=== PATIENT | male | born 1950 | race Caucasian/White ===

== ENCOUNTER 2024-12-11 07:51 | Outpatient (OUT) | payer MEDICARE, MEDICAID, SELFPAY ==
--- NOTE | 2024-12-11 08:00 | CA_ITS ---
Patient Name: ISAIAH COOPER MR#: [id number] : 1950 Exam Date: 12/11/2024 Ordering Doctor: ZUHAIR HALL CNP ECHOCARDIOGRAM REPORT PROCEDURE: CA ECHO DOPPLER COMPLETE INDICATIONS: Dyspnea on exertion, COPD, hypertension COMPARISON: None. DESCRIPTION: COMPLETE ECHOCARDIOGRAM Real-time transthoracic echocardiography with 2D, M-mode, spectral and color flow Doppler performed. QUALITY: Technical quality was adequate. LEFT VENTRICLE: Normal chamber size. Normal left ventricular wall thickness. LV EF: Global left ventricular systolic function is difficult to assess but appears preserved; visually estimated ejection fraction is 55%. Unable to assess regional wall motion abnormality; consider contrast study for better delineation of endocardial borders. DIASTOLIC: Unable to assess diastolic function. ATRIAL SEPTUM: Visually appears intact. LEFT ATRIUM: Normal chamber size. RIGHT ATRIUM: Normal chamber size. RIGHT VENTRICLE: Normal chamber size. Normal right ventricular systolic function. TRICUSPID VALVE: Normal mobility and thickness. No stenosis with no regurgitation. Unable to assess right-sided pressures due to lack of measurable tricuspid regurgitation. MITRAL VALVE: Normal mobility and thickness. No evidence of mitral valve stenosis. There is no mitral annular calcification. Trivial mitral regurgitation. AORTIC VALVE: Normal trileaflet appearance. No visible sclerosis. Normal leaflet mobility. No evidence of aortic valve stenosis. No aortic regurgitation. AORTIC ROOT: Normal diameter and appearance. PULMONIC VALVE: Not well visualized. No stenosis. No regurgitation. PERICARDIUM: Anterior free space; trivial effusion versus fat pad. IVC: Collapses with inspirations. IVC is normal in size. CONCLUSION: 1. Global left ventricular systolic function is difficult to assess but appears preserved; visually estimated ejection fraction is 55% 2. Normal right ventricular size and systolic function 3. The left atrium is normal in size 4. No significant valvular abnormalities 5. Anterior free space; trivial effusion versus fat pad Adult Echocardiography Procedure Report Left Ventricle LVEDD (3.7 - 5.6 cm): 5.12 cm LVESD (2.2 - 4.0 cm): 3.99 cm LVIVS thickness (0.6 - 1.2 cm): 0.89 cm LVPW thickness (0.5 - 1.0 cm): 0.90 cm e': 0.09 m/s E - e': 4.96 LVOT Max Gradient: 2.03 mm[Hg] LVOT Area (cm2): 0.71 m/s Peak Velocity (LVOT): 0.71 m/s Mean Velocity (LVOT): 0.47 m/s LVOT Diameter 2.41 cm Left Atrium LA Volume Index (2D A2C): 33.01 ml/m2 Left Atrium Systolic Dimension: 4.52 cm Mitral Valve MV E to A Ratio: 1.09 Mitral Valve A-Wave Peak Velocity: 0.42 m/s Mitral Valve E-Wave Peak Velocity: 0.46 m/s Right Ventricle Aorta AO Root Diam: 3.44 cm Aortic Valve AoV Area (Peak Mina): 2.58 cm2, 2.58 cm2 AoV Area (VTI): 2.67 cm2, 2.67 cm2 Peak Velocity(Antegrade Flow): 1.26 m/s Peak Gradient(Antegrade Flow): 6.34 mm[Hg] Mean Velocity(Antegrade Flow): 0.88 m/s Mean Gradient(Antegrade Flow): 3.50 mm[Hg] Velocity Time Integral: 21.07 cm Tricuspid Valve Pulmonic Valve Mean Gradient: 1.48 mm[Hg] Mean Velocity: 0.57 m/s Peak Velocity: 0.83 m/s, 1.00 m/s Peak Gradient: 3.98 mm[Hg], 2.72 mm[Hg] Right Atrium Right Atrium Systolic Pressure: 48.42 ml, 48.42 ml Dictated by: Jayshree Kidd M.D. on 12/11/2024 at 15:52 Approved by: Jayshree Kidd M.D. on 12/11/2024 at 15:55
== END 2024-12-11 07:52 | disposition home or self-care (01) ==
LOC: CARD 07:58
PROVIDERS: PCP Nurse Practitioner Family; Visit Provider Nurse Practitioner Family
DX: I25.10 Atherosclerotic heart disease of native coronary artery without angina pectoris (principal); R06.09 Other forms of dyspnea
CPT/HCPCS: 93306

== ENCOUNTER 2025-05-21 14:15 | Outpatient (REF) | payer MEDICARE, MEDICAID, SELFPAY ==
--- OUTSIDE RECORDS SUMMARY | 2025-05-21 14:26 | XMS_ITS | CCD ---
Author Organization [facility] Care Team Providers Care Practice Clinician Name Role Phone Alex Dsouza Unavailable Unavailable Alex Dsouza Unavailable Unavailable Alex Dsouza Unavailable Unavailable NONE, XXXX Unavailable Unavailable MORGAN PEREZ Referring Unavailable MORGAN PEREZ Primary Care Unavailable Morgan Perez Primary Care Provider MISC, DR DWYER Attending Unavailable MISC, DR DWYER Consulting Unavailable MISC, DR DWYER Primary Care Unavailable MISC, DR DWYER Admitting Unavailable ZUHAIR HALL Consulting Unavailable MISC, DR DWYER Primary Care Unavailable ZUHAIR HALL Admitting Unavailable ZUHAIR HALL Attending Unavailable WEST, DR JUAN Page Consulting Unavailable MISC, DR DWYER Primary Care Unavailable ELTAHAWY, DR JIMÉNEZ Attending Unavailable ELTAHAWY, DR JIMÉNEZ Admitting Unavailable ELTAHAWY, DR JIMÉNEZ Consulting Unavailable ELTAHAWY, DR JIMÉNEZ Admitting Unavailable MISC, DR DWYER Primary Care Unavailable ELTAHAWY, DR JIMÉNEZ Attending Unavailable DSOUZA, DR YOUNG Attending Unavailable DSOUZA, DR YOUNG Admitting Unavailable DSOUZA, DR YOUNG Consulting Unavailable MISC, DR DWYER Primary Care Unavailable MISC, DR DWYER Referring Unavailable WEST, DR JUAN Page Consulting Unavailable ZUHAIR HALL Consulting Unavailable ZUHAIR HALL Admitting Unavailable MISC, DR DWYER Primary Care Unavailable ZUHAIR HALL Attending Unavailable Joseph Peterson MD Primary Care Provider No Pcp, No Pcp Primary Care Provider UnavailJoseph Centeno MD Unavailable ZUHAIR HALL Attending Unavailable ZUHAIR HALL Attending Unavailable No Pcp, No Pcp Primary Care Provider UnavailRENEE Carrillo Attending Unavailable JOSEPH PETERSON Primary Care Unavailable RENEE CANO Attending Unavailable NO PCP, NO PCP Primary Care Unavailable Joseph Peterson MD Primary Care Provider [phone] RENEE CANO Attending Unavailable RENEE CANO Referring Unavailable JOSEPH PETERSON Primary Care Unavailable BIANCA CM Referring Unavailable JOSEPH PETERSON Primary Care Unavailable Medications Current Medications Medication Drug Class(es) Dates Sig (Normalized) Sig (Original) acetaminophen 325 mg oral tablet (3 sources) take 2 tablets by mouth every six hours as needed for pain and fever acetaminophen (TYLENOL) 325 mg tablet Take 2 tablets (650 mg total) by mouth every 6 (six) hours as needed for pain or fever (FEVER >101F). Active [id number] 200 actuat albuterol 0.09 mg/actuat metered dose inhaler (2 sources) beta2-Adrenergic Agonist take 2 puff(s) by inhalation every six hours as needed for wheezing albuterol (PROVENTIL HFA;VENTOLIN HFA) 90 mcg/actuation inhaler Inhale 2 puffs every 6 (six) hours as needed for wheezing. Active apixaban 5 mg oral tablet (5 sources) Factor Xa Inhibitor apixaban (EL IQUIS) 5 mg tablet Take by mouth in the morning and before bedtime. Active aspirin 81 mg delayed release oral tablet (5 sources) Platelet Aggregation Inhibitor, Nonsteroidal Anti-inflammatory Drug take 1 tablet by mouth in the morning aspirin 81 mg Take 1 tablet (81 mg total) by mouth in the morning. Active aspirin 81 mg ch ewable tablet Chew 1 tablet (81 mg total) and swallow in the morning. Active atorvastatin 40 mg oral tablet (3 sources) HMG-CoA Reductase Inhibitor take 1 tablet by mouth in the morning atorvastatin (LIPITOR) 40 mg tablet Take 1 tablet (40 mg total) by mouth in the morning. Active busPIRone hydrochloride 7.5 mg oral tablet (2 sources) Start: take 1 tablet by mouth once daily at bedtime busPIRone (BUSPAR) 7.5 mg tablet Take 1 tablet (7.5 mg total) by mouth once daily at bedtime. 12/04/2024 Active calcium carbonate 1250 mg / cholecalciferol 200 unt oral tablet (3 sources) Vitamin D take 1 tablet by mouth once in the morning calcium carbonate-vitamin D3 (OSCAL 500 + D) 500 mg(1,250mg) -200 units per tablet Take 1 tablet by mouth in the morning. Active cholecalciferol 0.05 mg oral capsule (3 sources) Vitamin D take 1 capsule by mouth in the morning cholecalciferol, vitamin D3, 2,000 units capsule Take 1 capsule (2,000 Units total) by mouth in the morning. Active sugar-free cholestyramine resin 4000 mg powder for oral suspension (2 sources) Bile Acid Sequestrant take 1 dose by mouth in the morning cholestyramine-aspa rtame (PREVALITE) 4 g powder in packet Take 1 packet by mouth in the morning. Active cholestyramine-aspartam e (PREVALITE) 4 g powder in packet (1 source) take 1 dose by mouth in the morning cholestyramine-aspa rtame (PREVALITE) 4 g powder in packet Take 1 packet by mouth in the morning. Active dexamethasone 2 mg oral tablet (2 sources) Corticosteroid take 1 tablet by mouth once daily at breakfast dexAMETHasone (DECADRON) 2 mg tablet Take 1 tablet (2 mg total) by mouth daily with breakfast. Active dextromethorphan hydrobromide 20 mg / quiNIDine sulfate 10 mg oral capsule (3 sources) Antiarrhythmic, Uncompetitive Q-nitxvf-V-aspartate Receptor Antagonist, Cytochrome P450 2D6 Inhibitor, Sigma-1 Agonist take 1 capsule by mouth in the morning dextromethorphan-qu iNIDine (NUEDEXTA) 20-10 mg capsule Take 1 capsule by mouth in the morning and 1 capsule before bedtime. Active furosemide 40 mg oral tablet (5 sources) Loop Diuretic Start: 025 End: 025 take 1 tablet by mouth twice daily furosemide (LASIX) 40 mg tablet Take 1 tablet (40 mg total) by mouth 2 (two) times a day. 11/18/2024 05/17/2025 Active take 1 tablet by mouth once guille y furosemide (LASIX) 40 mg tablet Take 1 tablet (40 mg total) by mouth daily. Active lisinopril 5 mg oral tablet (3 sources) Angiotensin Converting Enzyme Inhibitor take 1 tablet by mouth in the morning lisinopriL (PRINIVIL,ZESTRIL) 5 mg tablet Take 1 tablet (5 mg total) by mouth in the morning. Active loperamide hydrochloride 2 mg oral capsule (3 sources) Opioid Agonist take 1 capsule by mouth every eight hours as needed for diarrhea loperamide (IMODIUM) 2 mg capsule Take 1 capsule (2 mg total) by mouth every 8 (eight) hours as needed for diarrhea. Active metOLazone 2.5 mg oral tablet (1 source) Thiazide-like Diuretic take 1 tablet by mouth once daily metOLazone (ZAROXOLYN) 2.5 mg tablet Take 1 tablet (2.5 mg total) by mouth daily. Active omega 2-kfw-aid-fish oil 300-1,000 mg capsule (3 sources) take 1 capsule by mouth in the morning omega 0-qdp-qws-fish oil 300-1,000 mg capsule Take 1,000 mg by mouth in the morning and 1,000 mg before bedtime. Active omega 3-dha-epa- fish oil 300-1,000 mg capsule Take 1,000 mg by mouth 2 (two) times a day. Active omega 3-dha-epa- fish oil 300-1,000 mg capsule Take 1,000 mg by mouth 2 (two) times a day. 0 Active microencapsulated potassium chloride 20 meq extended release oral tablet (2 sources) Start: 11-08-2024 take 1 tablet by mouth in the morning potassium chloride (KLOR-CON M 20) 20 MEQ CR tablet Take 1 tablet (20 mEq total) by mouth in the morning. 11/08/2024 Active risperiDONE 0.5 mg oral tablet (5 sources) Atypical Antipsychotic Start: 11-13-2024 take 1 tablet by mouth in the morning risperiDONE (RisperDAL) 0.5 mg tablet Take 1 tablet (0.5 mg total) by mouth in the morning. 11/13/2024 Active take 1 mL by mouth in the mornin g risperiDONE (RisperDAL) 1 mg/mL oral solution Take 1 mL (1 mg total) by mouth in the morning and 1 mL (1 mg total) before bedtime. MIX WITH DRINK . Active sulfaSALAzine 500 mg oral tablet (3 sources) Aminosalicylate take 1 tablet by mouth in the morning sulfaSALAzine (AZULFIDINE) 500 mg tablet Take 1 tablet (500 mg total) by mouth in the morning. Active traMADol hydrochloride 50 mg oral tablet (12 sources) Opioid Agonist Start: End: 5 take 1 tablet by mouth every six hours traMADol (Ultram) 50 MG tablet Indications: Chronic midline low back pain with bilateral sciatica Take 1 tablet (50 mg) by mouth every 6 (six) hours 120 tablet 05/09/2025 06/08/2025 Active Start: 03-08-2025 End: 04-07-2025 traMADol (Ultram) 50 MG tabl et Indications: Chronic midline low back pain with bilateral sciatica Take 1 tablet (50 mg) by mouth in the morning and 1 tablet (50 mg) at noon and 1 tablet (50 mg) in the evening and 1 tablet (50 mg) before bedtime. 120 tablet 03/08/2025 04/07/2025 Active Start: 08-20-2024 End: 03-06-2025 take 1 tablet by mouth every six hours traMADol (Ultram) 50 MG tablet Indications: Chronic midline low back pain with bilateral sciatica Take 1 tablet (50 mg) by mouth every 6 (six) hours 120 tablet 02/04/2025 03/06/2025 Active valproic acid 50 mg/ml oral solution (3 sources) Mood Stabilizer, Anti-epileptic Agent take 5 mL by mouth at bedtime valproic acid, as sodium salt, (DEPAKENE) 250 mg/5 mL (5 mL) solution Take by mouth in the morning and before bedtime. 5ML . Active take 5 mL by mouth twice daily v alproic acid, as sodium salt, (DEPAKENE) 250 mg/5 mL (5 mL) solution Take by mouth 2 (two) times a day. 5ML Active Problems Active Problems Problem Classification Problem Date Documented Da te Episodic/Chronic Cancer of brain and nervous system (6 sources) Malignant neoplasm of brain stem; Translations: [Malignant neoplasm of brainstem] Onset: 1 Chronic Cardiac dysrhythmias (6 sources) Ventricular premature depolarization; Translations: [Cardiac arrhythmia, unspecified] Onset: 1 Chronic Coronary atherosclerosis and other heart disease (4 sources) Atherosclerotic heart disease of [place] coronary artery without angina pectoris; Translations: [Atherosclerosis of coronary artery without angina pectoris] Onset: 1 Chronic Esophageal disorders (2 sources) Gastroesophageal reflux disease without esophagitis; Translations: [Gastro-esophageal reflux disease without esophagitis] Onset: 1 12-17-2024 Chronic Essential hypertension (2 sources) Essential hypertension; Translations: [Essential (primary) hypertension] Onset: 1 12-17-2024 Chronic Late effects of cerebrovascular disease (2 sources) Dysphagia as a late effect of cerebrovascular accident; Translations: [Dysphagia following cerebral infarction] Onset: 1 12-17-2024 Chronic Mood disorders (1 source) Bipolar disorder, unspecified; Translations: [BIPOLAR DISORDER UNSPECIFIED] Onset: 1 Chronic Other and unspecified benign neoplasm (5 sources) Benign neoplasm of cerebral meninges; Translations: [BENIGN NEOPLASM CEREBRAL MENINGES] Onset: 1 Chronic Other diseases of veins and lymphatics (2 sources) Compression of vein; Translations: [Compression of vein] 12-17-2024 Episodic Other gastrointestinal disorders (1 source) Dysphagia, oropharyngeal phase; Translations: [Dysphagia, oropharyngeal phase] Onset: 5 Episodic Other lower respiratory disease (2 sources) Other forms of dyspnea; Translations: [Other forms of dyspnea] Onset: 5 Episodic Other screening for suspected conditions (not mental disorders or infectious disease) (5 sources) Abnormal electrocardiogram [ECG] [EKG]; Translations: [ABNORMAL ELECTROCARDIOGRAM] Onset: 1 Episodic Paralysis (1 source) Spastic hemiplegia affecting unspecified side; Translations: [SPASTIC HEMIPLEGIA AFFECT UNS SIDE] Onset: 1 Chronic Peripheral and visceral atherosclerosis (3 sources) Peripheral vascular disease, unspecified; Translations: [Peripheral vascular disease, unspecified] Onset: 1 05-30-2021 Chronic Residual codes; unclassified (2 sources) Localized edema; Translations: [Localized edema] Onset: 5 Episodic Spondylosis; intervertebral disc disorders; other back problems (6 sources) Chronic low back pain; Translations: [Lumbago with sciatica, right side] 08-20-2024 Episodic Unclassified (1 source) Blood Clot(s) Onset: 5 Past or Other Problems Problem Classification Problem Date Documented Da te Episodic/Chronic Cardiac dysrhythmias (4 sources) Palpitations; Translations: [PALPITATIONS] Onset: 12-10-2020 Episodic Other connective tissue disease (6 sources) Muscle pain; Translations: [Myalgia, unspecified site] Onset: 06-13-2023 06-13-2023 Episodic Other diseases of veins and lymphatics (2 sources) Compression of vein; Translations: [Compression of vein] Onset: 12-08-2024 Episodic Other lower respiratory disease (1 source) Dyspnea, unspecified; Translations: [DYSPNEA UNSPECIFIED] Onset: 01-06-2021 Episodic Phlebitis; thrombophlebitis and thromboembolism (18 sources) Acute deep venous thrombosis of tibial vein of left leg; Translations: [Acute embolism and thrombosis of left tibial vein] Onset: 05-30-2021 11-26-2023 Episodic Pulmonary heart disease (2 sources) H/O: pulmonary embolus; Translations: [Personal history of pulmonary embolism] Onset: 12-10-2020 12-17-2024 Episodic Residual codes; unclassified (1 source) Other amnesia; Translations: [OTHER AMNESIA] Onset: 12-15-2020 Episodic Residual codes; unclassified (2 sources) Edema; Translations: [Edema, unspecified] Onset: 10-06-2020 12-17-2024 Episodic Results Test Name Value Interpretation Reference Range Facility FL SWALLOW MOTILITY FUNCTION on 04-29-2025 FL SWALLOW MOTILITY FUNCTION FL SWALLOW MOTILITY FUNCTION Clinical History: Oropharyngeal dysphagia Swallowing motility study: 04/29/2025 Procedure: Swallowing of various consistencies of barium and barium coated materials was observed under fluoroscopy in conjunction with the speech therapy department. Impression: 1. One episode of flash penetration with thin liquids is evident. 2. There is no aspiration during the study. 3. Some reflux was present from the thoracic esophagus with no visible diverticulum or obstructing process within the limitations of this study. 4. 2.5 minutes of fluoroscopy time was utilized for this study. 5. A total of 18 cine runs were acquired during the evaluation. 6. Exposure (reference Air Kerma) was calculated to be 15.0 mGy. 7. Please refer to the speech therapy report for more detailed discussion of the findings. Finalized by Jose Vela MD on 04/29/2025 11:19 AM [facility] 37on 12-16-2024 37 *His BNP and ECHO sh ow that leg edema likely non-cardiac. Continue compression stockings. Elevate lower extremities when able. *Please have follow-up labs done since lasix has been increased to follow-up on renal function and electrolytes *Continue to monitor daily weights. Notify cardiology for weight gain of 3lbs in a day or 5lbs in a week. *Continue to monitor BP and HR daily. *Follow-up in 6 months or sooner if needed. Normal [facility] Office Visiton 12-16-2024 Follow-up visit [id number] Elliott Cooper A 1950 [facility] Provider Department Center 12/16/2024 ZUHAIR BUSTILLO [facility] Family History Problem Relation Age of Onset Other Father Coronary artery disease Father Other Father Stroke Brother Family Status - Relation Status Age at Mother Father Sister Brother Level of Service:58067 ME OFFICE/OUTPATIENT ESTABLISHED LOW MDM 20 MIN Reason for Visit and Comments: Coronary Artery Disease [187] Hypertension [364215] [facility] 37on 11-18-2024 37 *Isaiah was started on metolazone 2.5mg daily today. Recommend only using this short term. Can give for 2 days. Then advise to increase lasix to 40mg BID. *Have BMP/BNP drawn today or tomorrow. *Repeat BMP in 1 week while on increased dose of lasix. *Ordered for an ECHO to assess heart function, valve function, right sided pressures, etc. *Please maintain 2L daily fluid allowance. *He needs to be on a low sodium diet. *Apply compression stockings while awake. Normal [facility] Office Visiton 11-18-2024 Follow-up visit [id number] Elliott Cooper suly A 1950 [facility] Provider Department Center 11/18/2024 ZUHAIR BUSTILLO ELLIE [facility] Family History Problem Relation Age of Onset Other Father Coronary artery disease Father Other Father Stroke Brother Family Status - Relation Status Age at Father Brother Level of Service:99717 ME OFFICE/OUTPATIENT ESTABLISHED MOD MDM 30 MIN Reason for Visit and Comments: Coronary Artery Disease [187] Edema [[id number]] Hypertension [[id number]] [facility] CARDIAC STRESS TESTon 2020 CARDIAC STRESS TEST The [place], [place] NAME: ISAIAH COOPER Clarissa DATE OF : MEDICAL REC#: [id number] 3D SPECIALIST: 1421 MARIAN RENTERIA ADMIT DATE: 08/15/2021 11:20:00 SERVICE WORKER DATE: 08/16/2021 11:00 DICTATING PHYSICIAN: ROSARIO SAWYER DICTATION DATE: 08/15/2021 11:00 CARDIAC STRESS TEST Procedure Date: 08-15-21 PROCEDURE: Lexiscan stress test with myocardial perfusion imaging performed at [facility]. Informed consent was obtained. The patient was attached to electrocardiographic monitoring, an intravenous line was secured. Baseline vital signs and ECG were obtained. Lexiscan 0.4 mg was injected intravenously slowly. Following that Cardiolite was administered. Serial EKGs were obtained. The patient then went on to obtain myocardial perfusion images. Resting heart rate was 60 bpm and maximal heart rate was 94 bpm. Resting blood pressure was 162/80 and maximal blood pressure was 162/80. Resting ECG showed evidence of sinus rhythm at 60 bpm with occasional PVCs, ECG following infusion of Lexiscan showed sinus rhythm with PVCs sometimes occurring in couplets. Final ECG showed sinus rhythm with occasional PVCs. There was 1 run of nonsustained ventricular tachycardia consisting of 3 beats. There were no ischemic ECG ST changes. SUMMARY OF FINDINGS: 1. No evidence of ischemic ST changes following infusion of Lexiscan. 2. One episode of nonsustained ventricular tachycardia noted in recovery consisting of three beats. 3. Resting hypertension. 4. Myocardial perfusion images were reported separately. Electronically Authenticated and Edited by: Rosario Sawyer MD on 08/16/2021 10:39 PM [facility] Signed and Approved by: DR ROSARIO SAYWER 08/16/2021 22:39:00 Normal [facility] NM STRESS ONLY SINGLEon 08-03 NM STRESS ONLY SINGLE Patient: ISAIAH COOPER. Exam Date: 08/15/2021 : 1950 Gender:M Ordering : DR JESSY CHRISTENSEN M.D. Admission #: [id number] Family : Order #: [id number] CLICK HERE TO VIEW EXAM This report includes an Addendum and supersedes previous reports for this exam. RADIOLOGY REPORT PROCEDURE: RADIONUCLIDE IMAGING STRESS/REST MULTI COMPARISON: None. INDICATIONS: Electrocardiogram abnormal TECHNIQUE: Exam Description: Stress Only two day protocol gated SPECT Rest Imaging: Not performed Stress Imaging 29.2 mCi Tc-99m Cardiolite IV on 08/15/2021 Exercise Protocol: 0.4 mg Lexiscan given IV Heart Rate (bpm): Rest: 60 Max: 94 PMHR: 61 Blood Pressure: Rest: 162/80 Max: 162/80 Symptoms: Rest and peak stress ECG findings were abnormal and the exercise portion of the study was abnormal per attending physician Dr. Sawyer due to non-sustained ventricular tachycardia. For more details please see separate cardiac stress test report. FINDINGS: QUALITY OF STUDY: Good. PERFUSION DEFECT: LOCATION: Basal inferoseptal. Basal inferior. Mid-inferoseptal. Mid-inferior. Apical septal. Apical inferior. [place]. SIZE: Large (5 or more segments). SEVERITY: Severe. TYPE: N/A. WALL MOTION: Moderate hypokinesis: Basal inferior. Mid-inferior. Apical inferior. LV SIZE: Enlarged; EDV 121 mL. TID / TCD: Not calculated LVEF: Abnormal. Calculated EF 52%. SUMMARY: Myocardial perfusion imaging study has ABNORMAL findings. CONCLUSION: 1. Stress only images demonstrate a large transmural defect in the inferior wall extending into the septum and apex. Rest imaging is required for further evaluation 2. Mild dilation of the left ventricle with end-diastolic volume of 121 mL 3. Low left ventricular ejection fraction of 52% 4. Abnormal exercise test secondary to ventricular tachycardia Dictated by: Juan Cramer MD on 08/16/2021 at 06:18 Approved by: Juan Cramer MD on 08/16/2021 at 06:23 ADDENDUM: Rest imaging was performed on August 15, 2021 Rest imaging demonstrates partial redistribution in the inferior wall, suggesting reversible ischemia. Follow-up is recommended Dictated by: Juan Cramer MD on 09/14/2021 at 14:52 Approved by: Juan Cramer MD on 09/14/2021 at 14:54 Normal [facility] STRESS/REST MULTIon 08-15 NM STRESS/REST MULTI Patient: ISAIAH COOPER Exam Date: 08/15/2021 : 1950 Gender:M Ordering : DR JESSY CHRISTENSEN M.D. Admission #: [id number] Family : Order #: [id number] CLICK HERE TO VIEW EXAM This report includes an Addendum and supersedes previous reports for this exam. RADIOLOGY REPORT PROCEDURE: RADIONUCLIDE IMAGING STRESS/REST MULTI COMPARISON: None. INDICATIONS: Electrocardiogram abnormal TECHNIQUE: Exam Description: Stress Only two day protocol gated SPECT Rest Imaging: Not performed Stress Imaging 29.2 mCi Tc-99m Cardiolite IV on 08/15/2021 Exercise Protocol: 0.4 mg Lexiscan given IV Heart Rate (bpm): Rest: 60 Max: 94 PMHR: 61 Blood Pressure: Rest: 162/80 Max: 162/80 Symptoms: Rest and peak stress ECG findings were abnormal and the exercise portion of the study was abnormal per attending physician Dr. Sawyer due to non-sustained ventricular tachycardia. For more details please see separate cardiac stress test report. FINDINGS: QUALITY OF STUDY: Good. PERFUSION DEFECT: LOCATION: Basal inferoseptal. Basal inferior. Mid-inferoseptal. Mid-inferior. Apical septal. Apical inferior. [place]. SIZE: Large (5 or more segments). SEVERITY: Severe. TYPE: N/A. WALL MOTION: Moderate hypokinesis: Basal inferior. Mid-inferior. Apical inferior. LV SIZE: Enlarged; EDV 121 mL. TID / TCD: Not calculated LVEF: Abnormal. Calculated EF 52%. SUMMARY: Myocardial perfusion imaging study has ABNORMAL findings. CONCLUSION: 1. Stress only images demonstrate a large transmural defect in the inferior wall extending into the septum and apex. Rest imaging is required for further evaluation 2. Mild dilation of the left ventricle with end-diastolic volume of 121 mL 3. Low left ventricular ejection fraction of 52% 4. Abnormal exercise test secondary to ventricular tachycardia Dictated by: Juan Cramer MD on 08/16/2021 at 06:18 Approved by: Juan Cramer MD on 08/16/2021 at 06:23 ADDENDUM: Rest imaging was performed on August 15, 2021 Rest imaging demonstrates partial redistribution in the inferior wall, suggesting reversible ischemia. Follow-up is recommended Dictated by: Juan Cramer MD on 09/14/2021 at 14:52 Approved by: Juan Cramer MD on 09/14/2021 at 14:54 Normal [facility] ECHOCARDIO M/2D COMPLETEon 0 12-29-2020 ECHOCARDIO M/2D COMPLETE Patient: ALLISON ISAIAH RomoKaiden Exam Date: 12/29/2020 : 1950 Gender:M Ordering : ZUHAIR HALL Admission #: [id number] Family : Order #: [id number] CLICK HERE TO VIEW EXAM ECHOCARDIOGRAM REPORT PROCEDURE: CARDIO PULMONARY ECHOCARDIO M/2D COMP INDICATIONS: Multiple PVC, Arrhythmia, Abnormal EKG, SEXTON COMPARISON: None. DESCRIPTION: COMPLETE ECHOCARDIOGRAM Real-time transthoracic echocardiography with 2D, M-mode, spectral and color flow Doppler performed. QUALITY: Technical quality was limited. 71 200# 124/58 HR 79. Patient in wheelchair due to condition. Very frequent PVCs during exam. LEFT VENTRICLE: Normal chamber size. Mild concentric left ventricular hypertrophy. The septum is abnormal in it's motion. Unable to assess diastolic function. LV EF: Left ventricular systolic function is difficult to assess due to arrhythmia but appears low normal. Ejection fraction is 50%. DIASTOLIC: ATRIAL SEPTUM: LEFT ATRIUM: Moderate dilatation. RIGHT ATRIUM: Normal chamber size. RIGHT VENTRICLE: Normal chamber size. Normal right ventricular systolic function. TRICUSPID VALVE: Normal mobility and thickness. No stenosis with no regurgitation. MITRAL VALVE: Normal mobility and thickness. No evidence of mitral valve stenosis. Mild mitral regurgitation.There appears to be mild bileaflet mitral valve prolapse. AORTIC VALVE: Normal trileaflet appearance. Aortic valve appears to open well. Unable to assess AV by Doppler interrogation due to axis.Trace aortic regurgitation. AORTIC ROOT: PULMONIC VALVE: Normal thickness and mobility. No stenosis. No regurgitation. PERICARDIUM: No evidence of pericardial effusion. IVC: Not well visualized. PLEURA: CONCLUSION: 1. Left ventricular systolic function is difficult to assess but appears low normal, EF 50%. 2. Normal right ventricular systolic function. 3. Mild mitral valve prolapse with mild regurgitation. 4. Moderate left atrial dilatation. 5. No pericardial effusion. Adult Echocardiography Procedure Report Left Ventricle Left Atrium Mitral Valve Right Ventricle Aorta Aortic Valve Tricuspid Valve Peak Velocity: 0.44 m/s Pulmonic Valve PV Max Mina (0.6 - 0.9 m per sec): 0.80 m/s PV Max Gradient: 2.53 mm[Hg] Right Atrium Dictated by: Rosario Sawyer M.D. on 12/29/2020 at 17:09 Approved by: Rosario Sawyer M.D. on 12/29/2020 at 17:18 Normal [facility] DEPAKENE/VALPROICon 12-11-19 21 DEPAKENE 29.2 ug/ml Critically low 50.0-100.0 The [facility] Comment on above: Performed By: #### VALP ####[facility] pital [address] [place], [place] [address]Lzpiou Saida MAGNESIUMon 12-10-2020 Magnesium [Mass/Vol] 1.9 mg/dL Normal 1.6-2.3 [facility] Comment on above: Performed By: #### MG, TSH, CMP #### [facility] [address] [place], [place] [address] Ame Cintron PROF 14(COMP METB)on 021 Albumin [Mass/Vol] 3.3 g/dL Critically low 3.5-5.0 [facility] Comment on above: Performed By: #### MG, TSH, CMP #### [facility] [address] [place] [id number] Ame Saida Albumin/Globuli n [Mass ratio] 0.9 {ratio} Normal [facility] Comment on above: Performed By: #### MG, TSH, CMP #### [facility] [address] [id number] Ame Saida ALP [Catalytic activity/Vol] 79 U/L Normal 38-126 [facility] Comment on above: Performed By: #### MG, TSH, CMP #### [facility] [address] [id number] Ame Saida ALT [Catalytic activity/Vol] 32 U/L Normal 21-72 [facility] Comment on above: Performed By: #### MG, TSH, CMP #### [facility] [address] [id number] Ame Saida Anion gap [Moles/Vol] 10.9 mmol/L Normal [facility] Comment on above: Performed By: #### MG, TSH, CMP #### [facility] [address] [id number] Ame Saida AST [Catalytic activity/Vol] 20 U/L Normal 17-59 [facility] Comment on above: Performed By: #### MG, TSH, CMP #### [facility] [address] [address] Ame Saida Bilirubin [Mass/Vol] 0.7 mg/dL Normal 0.2-1.3 [facility] Comment on above: Performed By: #### MG, TSH, CMP #### [facility] [address] [address] Ame Saida Calcium [Mass/Vol] 8.7 mg/dL Normal 8.4-10.2 [facility] Comment on above: Performed By: #### MG, TSH, CMP #### [facility] [address] [address] Ame Saida Chloride [Moles/Vol] 105 mmol/L Normal 98-107 [facility] Comment on above: Performed By: #### MG, TSH, CMP #### [facility] [address] [place] [address] Ame Saida CO2 [Moles/Vol] 31.2 mmol/L Critically high 22.0-30.0 [facility] Comment on above: Performed By: #### MG, TSH, CMP #### [facility] [address] [address] Ame Saida Creatinine [Mass/Vol] 1.08 mg/dL Normal 0.66-1.25 [facility] Comment on above: Performed By: #### MG, TSH, CMP #### [facility] [address] [address] Ame Saida EGFR-AF MALDIVIAN >60 Normal >=60 [facility] Comment on above: Performed By: #### MG, TSH, CMP #### [facility] [address] [address] Ame Saida EGFR-NON AF MALDIVIAN >60 Normal >=60 [facility] Comment on above: Performed By: #### MG, TSH, CMP #### [facility] [address] [place] [address] Ame Saida Globulin (S) [Mass/Vol] 3.7 g/dL Normal [facility] Comment on above: Performed By: #### MG, TSH, CMP #### [facility] [address] [id number] Ame Saida Glucose [Mass/Vol] 104 mg/dL Normal 74-106 [facility] Comment on above: Performed By: #### MG, TSH, CMP #### [facility] [address] [id number] Ame Saida Potassium [Moles/Vol] 4.1 mmol/L Normal 3.4-5.0 [facility] Comment on above: Performed By: #### MG, TSH, CMP #### [facility] [address] [address] Ame Saida Protein [Mass/Vol] 7.0 g/dL Normal 6.1-8.2 [facility] Comment on above: Performed By: #### MG, TSH, CMP #### [facility] [address] [address] Ame Saida Sodium [Moles/Vol] 143 mmol/L Normal 137-145 [facility] Comment on above: Performed By: #### MG, TSH, CMP #### [facility] [address] [address] Ame Saida Urea nitrogen [Mass/Vol] 16.0 mg/dL Normal 9.0-20.0 [facility] Comment on above: Performed By: #### MG, TSH, CMP #### [facility] [address] [place], [place] [id number] Ame Saida Urea nitrogen/Creati nine [Mass ratio] 14.8 mg/mg Normal [facility] Comment on above: Performed By: #### MG, TSH, CMP #### [facility] [address] [id number] Ame Saida TSHon 12-10-2020 TSH 1.484 uIU/mL Normal 0.470-4.680 [facility] Comment on above: Performed By: #### MG, TSH, CMP #### [facility] [address] [id number] Ame Saida TSH RANGE SEE BELOW Normal [facility] Comment on above: Result Comment: <0.34 UIU/ml HYPERTHYROI D 0.34-5.60 UIU/ml EUTHYROID >5.60 UIU/ml HYPOTHYROID Performed By: #### M G, TSH, CMP #### [facility] [address] [id number] Ame Cintron MRI BRAIN WO W CONon 021 MRI BRAIN WO W CON EXAMINATION: MRI BRAIN WO W CON HISTORY: Primary malignant neoplasm of brain stem , memory loss, spastic hemiplegia COMPARISON: No relevant comparison available. TECHNIQUE: A variety of imaging planes and parameters were utilized for visualization of suspected pathology. Images were performed with 19 ml Dotarem contrast. FINDINGS: CEREBRUM: Moderate diffuse atrophy. Extra-axial dilation of the right lateral ventricle. Moderate white matter signal abnormality with increased T2 and FLAIR signal but no associated restricted diffusion CEREBELLUM: Large area of right cerebellar encephalomalacia likely representing prior surgical resection. BRAINSTEM: Contour deformity/encephalomalacia of the right brainstem consistent with remote resection. Moderate associated leukoencephalopathy CSF SPACES: Saccular dilation of the right lateral ventricle SKULL: Right temporal craniotomy. Fluid filling of the right mastoid air cells. SINUSES: Mucoperiosteal thickening of the right maxillary sinus. ORBITS: Limited views are unremarkable. OTHER: Area of postcontrast enhancement centered on the right tentorium extending from the inferior right temporal lobe to the superior right cerebellum measuring 1.5 cm in craniocaudal extent best seen on coronal image 19 and 4.7 x 1.5 cm on axial image 11 IMPRESSION: Remote right cerebellar and brainstem resection with 1.5 x 4.7 x 1.5 cm irregular enhancing mass likely representing recurrent or residual tumor centered along the right tentorium extending from the right brainstem to the superior cerebellum and inferior right temporal lobe. Electronically authenticated by: JUAN CRAMER Date: 2020-12-09 07:21 Normal [facility] BUNon 12-08-2020 Urea nitrogen [Mass/Vol] 17.0 mg/dL Normal 9.0-20.0 [facility] Comment on above: Performed By: #### CREA, BUN #### [facility] [address] [place], [place] [address] Ame Cintron CREATININEon 12-08-2020 Creatinine [Mass/Vol] 1.23 mg/dL Normal 0.66-1.25 [facility] Comment on above: Performed By: #### CREA, BUN #### [facility] [address] [place], [place] [address] Ame Cintron EGFR-AF MALDIVIAN >60 Normal >=60 [facility] Comment on above: Performed By: #### CREA, BUN #### [facility] [address] [place], [place] [address] Ame Cintron EGFR-NON AF MALDIVIAN 59 mL/min/1.73m2 Critically low >=60 [facility] Comment on above: Performed By: #### CREA, BUN #### [facility] [address] [place], [place] [address] Ame Cintron Lipid Panelon 10-12-2020 Cholesterol [Mass/Vol] 108 mg/dL <200 [place], [place] Comment on above: Cholesterol Guidelines: <200 Desirable 200-240 Borderline >240 Undesirable Cholesterol in HDL [Mass/Vol] 45 mg/dL >40 [place], [place] Comment on above: HDL Guidelines: <40 Undesirable 40-59 Borderline >59 Desirable Cholesterol in LDL [Mass/Vol] 53 mg/dL 0 - 130 mg/dL [place] Comment on above: LDL Guidelines: <100 Desirable 100-129 Near to/above Desirable 130-159 Borderline >159 Undesirable Direct (measured) LDL and calculated LDL are not interchangeable tests. Cholesterol in VLDL [Mass/Vol] NOT REPORTED 1 - 30 mg/dL [place], [place] Cholesterol.tot al/Cholesterol in HDL [Mass ratio] 2.4 {ratio} <5 [place] Triglyceride [Mass/Vol] 52 mg/dL <150 [place] Comment on above: Triglyceride Guidelines: <150 Desirable 150-199 Borderline 200-499 High >499 Very high Based on AHA Guidelines for fasting triglyceride, June 2012. Lipid Profileon 10-12-2020 Cholesterol [Mass/Vol] 108 mg/dL Normal <200 [facility] Comment on above: Result Comment: Cholesterol Guidelines: <200 Desirable 200-240 Borderline >240 Undesirable Performed By: #### L IPR #### [facility] [employer] [facility] [place], [place] [id number] Stereo Plotter Operator: Tesfaye Jack MD Cholesterol in HDL [Mass/Vol] 45 mg/dL Normal >40 [facility] Comment on above: Result Comment: HDL Guidelines: <40 Undesirable 40-59 Borderline >59 Desirable Performed By: #### L IPR #### [address] [address] Stereo Plotter Operator: Tesfaye Jack MD Cholesterol in LDL [Mass/Vol] 53 mg/dL Normal 0-130 [facility] Comment on above: Result Comment: LDL Guidelines: <100 Desirable 100-129 Near to/above Desirable 130-159 Borderline >159 Undesirable Direct (measured) LDL and calculated LDL are not interchangeable tests. Performed By: #### L IPR #### [address] [address] Stereo Plotter Operator: Tesfaye Jack MD Cholesterol.tot al/Cholesterol in HDL [Mass ratio] 2.4 {ratio} Normal <5 [facility] Comment on above: Performed By: #### LIPR #### [facility] [employer] [address] [place] [address] Stereo Plotter Operator: Tesfaye Jack MD Triglyceride [Mass/Vol] 52 mg/dL Normal <150 [facility] Comment on above: Result Comment: Triglyceride Guidelines: <150 Desirable 150-199 Borderline 200-499 High >499 Very high Based on AHA Guidelines for fasting triglyceride, June 2012. Performed By: #### L IPR #### [address] [address] Stereo Plotter Operator: Tesfaye Jack MD Cholesterol in VLDL [Mass/Vol] NOT REPORTED Normal 1-30 [facility] Comment on above: Performed By: #### LIPR #### [address] [address] Stereo Plotter Operator: Tesfaye Jack MD Coding Summary.on 06-06-2017 Coding Summary. CODING DATE: 017 FINAL [facility] STATUS: Home (Routine DC) PAYOR: Medicare APC DESCRIPTION 5572 Level 2 Imaging with Contrast ADMIT DX: REASON FOR VISIT DX: C71.7 Malignant neoplasm of brain stem FINAL DX: PRINCIPAL: C71.7 Malignant neoplasm of brain stem SECONDARY: G81.92 Hemiplegia, unspecified affecting left dominant side D32.0 Benign neoplasm of cerebral meninges Z98.890 Other specified postprocedural states PYMT PROC APC STAT DESCRIPTION DOCTOR NAME DATE NOTE: The code number assigned matches the documented diagnosis and / or procedure in the patient's chart. However, the narrative phrase printed from the coding software may appear abbreviated, or result in slightly different terminology. Coded By: Amy Smith Date Saved: 06/06/2017 08:54 am Normal [facility] Creatinineon 06-05-2017 Creatinine 0.9 mg/dL Normal 0.5-1.3 [facility] Comment on above: Performed By: #### [id number], [id number] ### #[facility] [id number] [place] [address] MRI Brain w/ + w/o Contrasto n 06-05-2017 MRI Brain w/ + w/o Contrast Exam Date/Time:06/05/2017 14:38 EDTReason for Exam:Malignant neoplasm of brain stem C71.7, Hemiplegia, unspecified affecting left dominant sideG81.92ReportIMPRESSION: POST RIGHT CRANIECTOMY. RESIDUAL RIGHT TENTORIAL MENINGIOMA. NOSIGNIFICANT CHANGE FROM 06/01/2014.CLINICAL HISTORY: History of benign tumor resection right side in 2002. Alteredbalance.COMPARISON: 06/01/2014.FINDINGS: Unenhanced and enhanced scans were obtained. Patient received 17 cc ofMultiHance. The study is compared with the previous MR 2013.Extensive defect in the posterior fossa right side with residual increased signal inthe right mastoid air cells; encephalomalacia of the right posterior temporal lobeand right cerebellum; and residual increased signal in the shadi and right middlecerebellar peduncle remain unchanged from 06/01/2014.There is residual enhancing mass along the tentorium right side extending to theincision measuring about 4.5 cm in length and 1 cm in thickness essentially unchangedfrom 06/01/2014. There is no significant hydrocephalus. There is normal opacificationof the venous sinuses. There is slight mass effect on the lateral aspect of the rightcerebellar peduncle associated with this mass. There is no extension of tumor intothe right CP angle. 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 There is nonspecificincreased white matter signal in the cerebral hemispheres bilaterally consistent withchronic small vessel vasculopathy. FINAL REPORT Dictated: 06/05/2017 5:05 pm Silas Womack MD Signed (Electronic Signature): 06/05/2017 5:05 pm Signed by: Silas Womack MD Transcribed by: SOLO Technologist: [email or web address] CommentsMultiHanceContrast amount in ml's: 17 Normal [facility] eGFRon 06-05-2017 eGFR (black) mL/min/{1.73_m2} Normal >=59 [facility] Comment on above: Order Comment: Order added by Ana ceballos. Result Comment: eGFR is race adjusted. AA=. Performed By: #### 2 [id number], [id number] ####[facility] [address] [place] [address] eGFR (non-black) mL/min/{1.73_m2} Normal >=59 [facility] Comment on above: Order Comment: Order added by Ana ceballos. Result Comment: Welfare Visitor hero kidney disease could be indicated at eGFR's of less than 60 mL/min/1.73m2. Kidney failure is indicated at less than 15 mL/min/1.73m2. Performed By: #### 2 [id number], [id number] ####[facility] [address] [place] [address] Vital Signs Date Time Vital Sign Value Performing Clinician Kortney betancourt 01-19-2025 14:08-0400 Diastolic blood pressure 74 mm[Hg] Renee Cano DO Work Phone: [facility] 01-19-2025 14:08-0400 Heart rate 78 /min Renee Cano DO Work Phone: [facility] 01-19-2025 14:08-0400 Systolic blood pressure 112 mm[Hg] Renee Cano DO Work Phone: [facility] 12-08-2024 13:51-0400 Diastolic blood pressure 75 mm[Hg] Renee Cano DO Work Phone: [facility] 12-08-2024 13:51-0400 Heart rate 99 /min Renee Cano DO Work Phone: [facility] 12-08-2024 13:51-0400 Systolic blood pressure 114 mm[Hg] Renee Cano DO Work Phone: [facility] 11-26-2023 08:33-0400 Diastolic blood pressure 76 mm[Hg] Anjana Luna MD Work Phone: [facility] 11-26-2023 08:33-0400 Heart rate 68 /min Anjana Luna MD Work Phone: [facility] 11-26-2023 08:33-0400 SaO2% (BldA) [Mass fraction] 94 % [facility] 11-26-2023 08:33-0400 Systolic blood pressure 124 mm[Hg] Anjana Luna MD [facility] En[facility] Encounter Date Encounter Type Care Provider Facility Start: 05-09-2025 End: 05-09-2025 Telephone encounter Bianca Cm NP [facility] Start: 04-29-2025 End: 04-29-2025 ambulatory [facility] Start: 03-08-2025 End: 03-08-2025 Telephone encounter Bianca Cm NP Work Phone: [facility] Start: 02-04-2025 End: 02-04-2025 Telephone encounter Bianca Cm PRECIPITATE WASHER Work Phone: [facility] Start: 01-19-2025 End: 01-19-2025 Office outpatient visit 10 minutes Renee Cano DO Work Phone: [facility] Comment on above: Acute deep vein thro mbosis (DVT) of tibial vein of left lower extremity (CMS-HCC) (Primary Dx); Acute deep vein thrombosis (DVT) of femoral vein of left lower extremity (CMS-HCC) Start: 01-19-2025 End: 01-19-2025 ambulatory [facility] Start: 12-31-2024 End: 12-31-2024 ambulatory [facility] Start: 12-25-2024 End: 12-25-2024 Telephone encounter Bianca Cm PRECIPITATE WASHER Work Phone: [facility] Start: 12-16-2024 End: 12-16-2024 [facility] Start: 12-08-2024 End: 12-08-2024 Office outpatient visit 15 minutes [facility] Work Phone: [facility] [place] [facility] [place] Comment on above: Acute deep vein thro mbosis (DVT) of femoral vein of left lower extremity ([facility]-HCC) (Primary Dx); Compression of vein Start: 12-08-2024 End: 12-08-2024 ambulatory [facility] Start: 12-03-2024 End: 12-03-2024 Telephone encounter Bianca Cm PRECIPITATE WASHER Work Phone: [facility] Start: 11-18-2024 End: 11-18-2024 ambulatory [facility] Start: 08-20-2024 End: 08-20-2024 Telephone encounter Bianca Cm PRECIPITATE WASHER Work Phone: [facility] Start: 11-26-2023 End: 11-26-2023 Office outpatient visit 15 minutes Anjana Luna MD Work Phone: [facility] Comment on above: Acute deep vein thro mbosis (DVT) of tibial vein of left lower extremity (CMS-HCC) (Primary Dx); Acute deep vein thrombosis (DVT) of femoral vein of left lower extremity (CMS-HCC); Acute deep vein thrombosis (DVT) of femoral vein of right lower extremity (CMS-HCC) Start: 09-14-2021 End: 09-15-[address] JESSY CHRISTENSEN Facility:[facility] Start: 08-15-2021 End: 08-16-[address] JUAN CRAMER Facility:[facility] Start: 12-29-2020 End: 12-30-2020 ambulatory ZUHAIR HALL Facility:[facility] Start: 12-10-2020 End: 12-10-[address] DOCTOR MASON Facility:[facility] Start: 12-10-2020 End: 12-11-2020 ambulatory ZUHAIR HALL Facility:[facility] Start: 12-08-2020 End: 12-09-[address] ALEX DSOUZA Facility:[facility] Start: 10-12-2020 End: 10-13-2020 Patient encounter procedure MORGAN PEREZ [facility] Start: 10-12-2020 End: 10-12-2020 Subsequent hospital visit by physician Morgan Perez [facility] Start: 06-05-2017 End: 06-06-2017 Ambulatory Alex Dsouza Facility[facility] Procedures Date Procedure Procedure Detail Performing Clinician Start: 01-19-2025 Follow-up visit Follow-up RENEE CANO Start: 10-12-2020 Lipid panel Morgan jefferson Work Phone: Plan of Treatment Date Care Activity Detail Author Start: 01-19-2026 [facility] Start: 12-08-2025 Tobacco Screening [facility] Start: 07-27-2025 End: 07-27-2025 Telemedicine consultation with patient 07/27/2025 3:15 PM EST Telemedicine [facility] [place] [address] [place] [address] Renee Cano DO [address] [place] [address] [facility] [place] [facility] Start: 05-04-2025 [facility] Start: 01-19-2025 End: 01-19-2025 Patient encounter procedure 01/19/2025 2:00 PM EDT Office Visit [facility] [place] [address] [place] [address] Renee Cano DO [address] [place] [address] [facility] [place] Start: 12-31-2024 End: 12-31-2024 Patient encounter procedure 12/31/2024 9:15 AM EDT Appointment [facility] [address] [place] [id number] Renee Cano DO [address] [place] [address] [facility] Start: 12-08-2024 End: 12-08-2025 US.doppler Thoracic and Abdominal Aorta and Inferior Vena Cava and Illiac vessels Vas IVC/iliac duplex complete Vascular Ultrasound Routine Acute deep vein thrombosis (DVT) of femoral vein of left lower extremity (CMS-HCC) Compression of vein Expected: 12/08/2024, Expires: 12/08/2025 [facility] Work Phone: Comment on above: Expected: 12/08/2024 , Expires: 12/08/2025 Start: 12-01-2024 End: 12-01-2024 Patient encounter procedure 12/01/2024 10:00 AM EDT Office Visit [facility] [address] [place] [address] [place] [address] Anjana Luna MD [address] [facility] [address] [place] [address] [facility] Start: 05-04-2024 COVID-19 Vaccine ( season) COVID-19 Vaccine ( season) [facility] Start: 05-04-2024 Influenza vaccination Influenza Vacc ine (#1) [facility] Start: 05-04-2023 COVID-19 Vaccine ( season) COVID-19 Vaccine ( season) [facility] Start: 05-04-2023 Influenza vaccination Influenza Vacc ine [facility] Start: 05-30-2022 Adult BMI Screening Adult BMI Screen ing [facility] Start: 05-04-2020 Influenza vaccination Flu vaccine (# 1) [place], [place] Start: 2017 Fall Risk Screening Fall Risk Screen ing [facility] Start: 2002 Administration of varicella zoster vaccine Zoster (Shingles) Vaccine (1 of 2) [facility] Start: 1971 Administration of varicella zoster vaccine Zoster (Shingles) Vaccine (1 of 2) [facility] Start: 1971 DTaP,Tdap and Td Vac cines (1 - Tdap) DTaP,Tdap and Td Vaccines (1 - Tdap) [facility] Start: 1971 Pneumococcal Vaccine : 65+ Years (1 of 2 - PCV) Pneumococcal Vaccine: 65+ Years (1 of 2 - PCV) [facility] Start: 1970 Adult BMI Screening Adult BMI Screen ing [facility] Start: 1968 COVID-19 Vaccine (1 of 2) COVI D-19 Vaccine (1 of 2) [place] Start: 1964 Depression Screening Depression Scre ening [facility] Start: 1964 Tobacco Screening Tobacco Screening [facility] Start: 1958 Pneumococcal Vaccine : 65+ Years (1 of 2 - PCV) Pneumococcal Vaccine: 65+ Years (1 of 2 - PCV) [facility] Start: 1952 Medicare Annual Well ness (AWV) Medicare Annual Wellness (AWV) [facility] Start: 1952 Medicare Annual Well ness Visit Medicare Annual Wellness Visit [facility] Start: 1952 Screening for malign ant neoplasm of colon [facility] Payers Date Payer Category Payer Medicaid [id number] 2005 Medicare [id number] 1959 Medicaid [id number] 1959 Medicare [id number] 1959 Medicare [id number] 1952 Unknown [id number] 2.16.84 [id number] 1952 Unknown [id number] 2.16.84 [id number] 1952 Unknown [id number] 2.16.84 [id number] 1952 Unknown [id number] 2.16.84 [id number] 1952 Unknown [id number] 2.16.84 [id number] 1952 Unknown [id number] 2.16.84 [id number] 1952 Unknown [id number] 2.16. [id number] 1952 Unknown [id number] 2.16. [id number] 1952 Unknown [id number] 2.16. [id number] 1952 Unknown [id number] 2.16. [id number] Social History Date Type Detail Facility Tobacco smoking stat [facility] Unknown if ever smoked [place], [place] Start: 1950 Sex Assigned At Not on file [place], [place] Tobacco smoking stat [facility] Tobacco smoking consumption unknown [facility] Start: 10-06-2020 End: 09-18-2022 Gender identity Not on file [facility] [place] [employer] [facility] Start: 05-26-2021 End: 12-08-2024 Tobacco smoking status WAIS Never smoked tobacco [facility] Work Phone: Start: 05-26-2021 End: 12-08-2024 Tobacco use and exposure Smokeless tobacco non-user [facility] Start: 09-18-2022 End: 01-28-2025 Alcohol intake Lifetime non-drinker (finding) [facility] Start: 10-06-2020 End: 09-18-2022 History of Social function [facility] Childcare Unknown [facility] Start: 04-08-2015 Sex Male (finding) [facility] Clinical Notes 11-26-2023 to 05-09-2025 Telephone Encounter - Bianca Cm NP - 05/09/2025 4:46 PM EDTTelephone Encounter - Bianca Cm NP - 05/09/2025 4:46 PM EDTTelephone Encounter - Bianca Cm NP - 03/08/2025 8:55 PM EDT Note Date & Type Note Facility 05-09-2025 Telephone encounter Note Requested Prescriptions Signed Prescriptions Disp Refills traMADol (Ultram) 50 MG tablet 120 tablet 0 Sig: Take 1 tablet (50 mg) by mouth every 6 (six) hours Authorizing Provider: BIANCA CM This is a [facility]. [facility] 05-09-2025 Miscellaneous Notes Requested Prescriptions Signed Prescriptions Disp Refills traMADol (Ultram) 50 MG tablet 120 tablet 0 Sig: Take 1 tablet (50 mg) by mouth every 6 (six) hours Authorizing Provider: BIANCA CM This is a [facility] [place] [facility] patient. documented in this encounter [facility] 03-08-2025 Telephone encounter Note Requested Prescriptions Signed Prescriptions Disp Refills traMADol (Ultram) 50 MG tablet 120 tablet 0 Sig: Take 1 tablet (50 mg) by mouth in the morning and 1 tablet (50 mg) at noon and 1 tablet (50 mg) in the evening and 1 tablet (50 mg) before bedtime. Authorizing Provider: BIANCA CM [facility] 03-08-2025 Miscellaneous Notes Requested Prescriptions Signed Prescriptions Disp Refills traMADol (Ultram) 50 MG tablet 120 tablet 0 Sig: Take 1 tablet (50 mg) by mouth in the morning and 1 tablet (50 mg) at noon and 1 tablet (50 mg) in the evening and 1 tablet (50 mg) before bedtime. Authorizing Provider: BIANCA CM documented in this encounter [facility] 02-04-2025 Telephone encounter Note Requested Prescriptions Signed Prescriptions Disp Refills traMADol (Ultram) 50 MG tablet 120 tablet 0 Sig: Take 1 tablet (50 mg) by mouth every 6 (six) hours Authorizing Provider: BIANCA CM [facility] 02-04-2025 Miscellaneous Notes Requested Prescriptions Signed Prescriptions Disp Refills traMADol (Ultram) 50 MG tablet 120 tablet 0 Sig: Take 1 tablet (50 mg) by mouth every 6 (six) hours Authorizing Provider: BIANCA CM documented in this encounter [facility] 01-19-2025 History of Presen t illness Narrative Images from the original note were not included. CC: Chief Complaint Patient presents with Follow-up Blood Clot(s) Testing done 74 y.o. 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 Pt last seen in office 11/26/23 (Dr. Vianney Luna). Wheel-chair bound, limited verbal responses, chronic LLE weakness. Mild LLE edema. Elevate LE as able. Continue on indefinite anticoag (eliquis). RTC 1 year. 12/08/24: Pt continues wheel-chair bound w/ limited verbal responses. Per aid she feels he had recent US at facility that was negative for DVT. No records available at time of exam. Scheduled for ECHO this due to edema concerns. 01/19/25: Pt presented to office w/ aid from his nursing facility. +bilat LE edema. Pts and his aid are unsure if LLE edema worsened and/or same as previous. Denies any new concerns/issues. Chief Complaint Patient presents with Follow-up Blood Clot(s) Testing done Patient Active Problem List Diagnosis Acute deep vein thrombosis (DVT) of tibial vein of left lower extremity ([facility]) Acute deep vein thrombosis (DVT) of femoral vein of left lower extremity ([facility]) Acute deep vein thrombosis (DVT) of femoral vein of right lower extremity ([facility]) PAD (peripheral artery disease) Atherosclerosis of coronary artery without angina pectoris Dysphagia as late effect of cerebrovascular accident (CVA) Edema Gastroesophageal reflux disease without esophagitis Essential hypertension History of pulmonary embolism Malignant neoplasm of brainstem ([facility]) BP 112/74 Pulse 78 Past Medical History: Diagnosis Date Anemia Anxiety 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 ([facility]) Bipolar disorder ([facility]) Cerebral infarction ([facility]) Dysphagia, oropharyngeal phase GERD (gastroesophageal reflux disease) Hypertension Obsessive-compulsive behavior Other sequelae of other cerebrovascular disease Pseudobulbar affect Schizoaffective disorder ([facility]) Spastic hemiparesis of left nondominant side ([facility]) Stroke ([facility]) Ulcerative colitis ([facility]) History reviewed. No pertinent surgical history. Physical Exam: Physical Exam Vitals and nursing note reviewed. Constitutional: Comments: wheelchair HENT: Head: Normocephalic and atraumatic. Pulmonary: Effort: Pulmonary effort is normal. Musculoskeletal: General: Normal range of motion. Right lower leg: Edema present. Left lower leg: Edema present. Comments: Moving all ext equally Skin: General: Skin is warm and dry. Neurological: Mental Status: He is alert. Mental status is at baseline. Psychiatric: Attention and Perception: Attention normal. Mood and Affect: Mood normal. Speech: Speech normal. Behavior: Behavior is cooperative. 01/19/25: Testing Reviewed: CBC with Differential: Lab Results Component Value Date WBC 4.8 07/22/2021 HGB 14.1 07/22/2021 HCT 43.3 07/22/2021 PLT 183 07/22/2021 MCV 87 07/22/2021 MCH 28.3 07/22/2021 MCHC 32.5 07/22/2021 RDW 14.6 07/22/2021 BMP: Lab Results Component Value Date SODIUM 138 05/26/2021 K 4.5 05/26/2021 CL 102 05/26/2021 CO2 25 05/26/2021 BUN 35 (H) 05/26/2021 CREATININE 1.22 (H) 05/26/2021 GLU 107 (H) 05/26/2021 Assessment/Plan of care: Please note that total time spent was 15 minutes: Including but not limited to: Preparing to see the patient (e.g., review of tests) Obtaining and/or reviewing separately obtained history Performing a medically appropriate examination and evaluation Counseling and educating the patient/family/caregiver Ordering medications, tests, or procedures In office [facility] imaging and review of findings Documenting visit details Greater than 50% was devoted to counseling and coordination of care, discussing the normal function of deep and superficial venous systems, and explaining the pathologic processes that lead to ambulatory venous hypertension and leg symptoms of heaviness, fatigue, etcetera. Encounter Diagnoses Name Primary? Acute deep vein thrombosis (DVT) of tibial vein of left lower extremity ([facility]) Yes Acute deep vein thrombosis (DVT) of femoral vein of left lower extremity ([facility]) Isaiah was seen today for follow-up and blood clot(s). Diagnoses and all orders for this visit: Acute deep vein thrombosis (DVT) of tibial vein of left lower extremity ([facility]) Acute deep vein thrombosis (DVT) of femoral vein of left lower extremity ([facility]) 1. Acute deep vein thrombosis (DVT) of tibial vein of left lower extremity ([facility]) 2. Acute deep vein thrombosis (DVT) of femoral vein of left lower extremity ([facility]) 74 y.o. 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 DVT: Reported no acute findings on previous venous duplex. Due to previous concern for isolated L>RLE edema w/ h/o DVT iliac and IVC US completed 12/31/24: limited visualization. No obvious thrombosis. +small diameter IVC and common iliac veins. Continue w/ bilat LE compression stockings and elevation. Monitor for recurrent/progressive edema. If persistent and/or progressive would plan for CTV abd/pelvis to confirm patency and determine if areas of significant stenosis. Continue w/ elevation as able - suspect pt spends majority of his time seated in wheelchair. Anticoag: eliquis Duration: indefinite Encourage f/u w/ PCP to further discuss LE edema and alternative medical etiologies (medication, cardiac etc) Return to office in 6 mo to review compliance w/ compression stockings, persistent symptoms and discuss further plan of care. Pt facility to notify office w/ any progressive edema and/or concerns. Renee Cano DO Vascular Surgery documented in this encounter [facility] 12-25-2024 Telephone encounter Note Requested Prescriptions Signed Prescriptions Disp Refills traMADol (Ultram) 50 MG tablet 120 tablet 0 Sig: Take 1 tablet (50 mg) by mouth every 6 (six) hours Authorizing Provider: BIANCA CM [facility] 12-25-2024 Miscellaneous Notes Requested Prescriptions Signed Prescriptions Disp Refills traMADol (Ultram) 50 MG tablet 120 tablet 0 Sig: Take 1 tablet (50 mg) by mouth every 6 (six) hours Authorizing Provider: BIANCA CM documented in this encounter [facility] 12-16-2024 Note Patient here for 3 w [place] [facility] [place] follow up. Lab done. Patient seen Dr. Cano at [facility] vascular. Duplex scan ordered by vascular and an ultra sound of the abdomen has also been ordered. Vascular ordered compression socks, wearing compression socks. Patient has no cardiac complaints at this time. [facility] 12-16-2024 Note Cardiovascular Medic [facility] SUBJECTIVE Chief Complaint Patient presents with Coronary Artery Disease Hypertension Isaiah Cooper is a 74 y.o. male here for follow-up. HPI PMHx: CAD, NSVT, hypertension, DVT/PE - needs lifelong AC, PAD He is nonverbal and wheelchair bound. He is able to answer yes/no questions. 12/16/2024 Since last seen, he has seen vascular. He is pending a leg ultrasound. They ordered compression stockings for him. He is also getting an abdominal ultrasound soon. His left leg remains swollen but his right leg edema is improved. He notes his SEXTON is better. Denies c/o CP, orthopnea, PND, dizziness/LH, palpitations, syncope. 11/18/2024 He was started on metolazone 2.5mg daily today at his facility due to worsening leg swelling. He is also currently taking lasix 40mg daily. He c/o SOB with exercise. He notes his increased leg swelling and worsening SOB started a few weeks ago. Denies CP, palpitations, dizziness/LH, syncope, orthopnea, PND. Patient Active Problem List Diagnosis Acute deep vein thrombosis (DVT) of femoral vein of left lower extremity ([facility]/HCC) Acute deep vein thrombosis (DVT) of femoral vein of right lower extremity ([facility]) Acute deep vein thrombosis (DVT) of tibial vein of left lower extremity ([facility]) Coronary atherosclerosis Essential hypertension History of pulmonary embolism Malignant neoplasm of brainstem ([facility]) Nonsustained ventricular tachycardia ([facility]) PAD (peripheral artery disease) Ventricular premature beats Bipolar II disorder ([facility]) Dysphagia as late effect of cerebrovascular accident (CVA) Edema Gastroesophageal reflux disease without esophagitis Myalgia Obsessive-compulsive disorder Osteoporosis Pseudobulbar affect Ulcerative colitis ([facility]) Past Medical History: Diagnosis Date Arrhythmia Cancer ([facility]) Coronary artery disease Hyperlipidemia Hypertension NSVT (nonsustained ventricular tachycardia) ([facility]) Pulmonary embolism ([facility]) Family History Problem Relation Name Age of Onset Other (ICD) Father Coronary artery disease Father Other (CABG) Father Stroke Brother Social History Tobacco Use Smoking status: Former Types: Cigarettes Smokeless tobacco: Never Substance Use Topics Alcohol use: Not Currently No Known Allergies ROS Cardiovascular: Positive for leg swelling (L > R). Neurological: Positive for headaches and paresthesias. All other systems reviewed and are negative. OBJECTIVE Visit Vitals BP 100/67 (BP Location: Right arm, Patient Position: Sitting) Pulse 94 Ht 1.778 m (5' 10 ) Wt 84.4 kg (186 lb) SpO2 91% BMI 26.69 kg/m??? Smoking Status Former BSA 2.04 m??? Medications: Current Outpatient Medications: acetaminophen (Tylenol) 325 mg tablet, Take 650 mg by mouth every 6 (six) hours if needed., Disp: , Rfl: albuterol 90 mcg/actuation inhaler, Inhale 2 puffs every 6 (six) hours if needed for wheezing., Disp: , Rfl: apixaban (Eliquis) 5 mg tablet, Take 5 mg by mouth in the morning and at bedtime., Disp: , Rfl: aspirin 81 mg chewable tablet, in the morning., Disp: , Rfl: atorvastatin (Lipitor) 40 mg tablet, Take 40 mg by mouth 1 (one) time each day., Disp: , Rfl: busPIRone (Buspar) 7.5 mg tablet, Take 7.5 mg by mouth in the morning., Disp: , Rfl: cholecalciferol, vitamin D3, 50 mcg (2,000 unit) capsule, Take 2,000 Units by mouth in the morning., Disp: , Rfl: cholestyramine light (Prevalite) 4 gram packet, Take 1 packet by mouth in the morning., Disp: , Rfl: dexAMETHasone (Decadron) 2 mg tablet, Take 2 mg by mouth in the morning., Disp: , Rfl: dextromethorphan-quinidine (Nuedexta) 20-10 mg capsule, Nuedexta 20 mg-10 mg capsule, Disp: , Rfl: divalproex sprinkle (Depakote Sprinkle) [address] capsule, Take 125 mg by mouth once daily as directed., Disp: , Rfl: DOCOSAHEXAENOIC ACID ORAL, Take 1,000 mg by mouth twice a day., Disp: , Rfl: furosemide (Lasix) 40 mg tablet, Take 1 tablet (40 mg) by mouth two times daily., Disp: 60 tablet, Rfl: 5 hydrOXYzine pamoate (Vistaril) 25 mg capsule, Take 25 mg by mouth if needed in the morning, at noon, and at bedtime., Disp: , Rfl: lisinopril 5 mg tablet, Take 5 mg by mouth in the morning., Disp: , Rfl: potassium chloride CR (Klor-Con M20) 20 mEq ER tablet, Take 20 mEq by mouth in the morning., Disp: , Rfl: risperiDONE (RisperDAL) 1 mg/mL oral solution, Take 0.5 mg by mouth at bedtime., Disp: , Rfl: sulfaSALAzine (Azulfidine) 500 mg tablet, sulfasalazine 500 mg tablet, Disp: , Rfl: traMADol (Ultram) 50 mg tablet, Take 50 mg by mouth every 6 (six) hours., Disp: , Rfl: calcium carbonate-vitamin D3 500 mg-5 mcg (200 unit) tablet, Take 1 tablet by mouth in the morning., Disp: , Rfl: metOLazone (Zaroxolyn) 2.5 mg tablet, Take 2.5 mg by mouth in the morning., Disp: , Rfl: Physical Exam Constitutional: Appearance: Normal appearance. He is normal weight. (more content not included)... [facility] 12-08-2024 History of Presen t illness Narrative Images from the original note were not included. CC: Chief Complaint Patient presents with Follow-up Blood Clot(s) Hx of DVT 74 y.o. 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 Pt last seen in office 11/26/23 (Dr. Vianney Luna). Wheel-chair bound, limited verbal responses, chronic LLE weakness. Mild LLE edema. Elevate LE as able. Continue on indefinite anticoag (eliquis). RTC 1 year. 12/08/24: Pt presented to office w/ aid from his nursing facility. Pt continues wheel-chair bound w/ limited verbal responses. Per aid she feels he had recent US at facility that was negative for DVT. No records available at time of exam. Scheduled for ECHO this due to edema concerns. Chief Complaint Patient presents with Follow-up Blood Clot(s) Hx of DVT Patient Active Problem List Diagnosis Acute deep vein thrombosis (DVT) of tibial vein of left lower extremity (CMS-HCC) Acute deep vein thrombosis (DVT) of femoral vein of left lower extremity ([facility]) Acute deep vein thrombosis (DVT) of femoral vein of right lower extremity ([facility]) PAD (peripheral artery disease) Atherosclerosis of coronary artery without angina pectoris Dysphagia as late effect of cerebrovascular accident (CVA) Edema Gastroesophageal reflux disease without esophagitis Essential hypertension History of pulmonary embolism Malignant neoplasm of brainstem ([facility]) BP 114/75 Pulse 99 Past Medical History: Diagnosis Date Anemia Anxiety 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 ([facility]) Bipolar disorder ([facility]) Cerebral infarction ([facility]) Dysphagia, oropharyngeal phase GERD (gastroesophageal reflux disease) Hypertension Obsessive-compulsive behavior Other sequelae of other cerebrovascular disease Pseudobulbar affect Schizoaffective disorder ([facility]) Spastic hemiparesis of left nondominant side ([facility]) Stroke ([facility]) Ulcerative colitis ([facility]) History reviewed. No pertinent surgical history. Physical Exam: Physical Exam Vitals and nursing note reviewed. Constitutional: Comments: wheelchair HENT: Head: Normocephalic and atraumatic. Pulmonary: Effort: Pulmonary effort is normal. Musculoskeletal: General: Normal range of motion. Left lower leg: Edema present. Comments: Moving all ext equally Skin: General: Skin is warm and dry. Neurological: Mental Status: He is alert. Mental status is at baseline. Psychiatric: Attention and Perception: Attention normal. Mood and Affect: Mood normal. Speech: Speech normal. Behavior: Behavior is cooperative. Testing Reviewed: CBC with Differential: Lab Results Component Value Date WBC 4.8 07/22/2021 HGB 14.1 07/22/2021 HCT 43.3 07/22/2021 PLT 183 07/22/2021 MCV 87 07/22/2021 MCH 28.3 07/22/2021 MCHC 32.5 07/22/2021 RDW 14.6 07/22/2021 BMP: Lab Results Component Value Date SODIUM 138 05/26/2021 K 4.5 05/26/2021 CL 102 05/26/2021 CO2 25 05/26/2021 BUN 35 (H) 05/26/2021 CREATININE 1.22 (H) 05/26/2021 GLU 107 (H) 05/26/2021 Assessment/Plan of care: Please note that total time spent was 20 minutes: Including but not limited to: Preparing to see the patient (e.g., review of tests) Obtaining and/or reviewing separately obtained history Performing a medically appropriate examination and evaluation Counseling and educating the patient/family/caregiver Ordering medications, tests, or procedures In office [facility] imaging and review of findings Documenting visit details Greater than 50% was devoted to counseling and coordination of care, discussing the normal function of deep and superficial venous systems, and explaining the pathologic processes that lead to ambulatory venous hypertension and leg symptoms of heaviness, fatigue, etcetera. Encounter Diagnoses Name Primary? Acute deep vein thrombosis (DVT) of femoral vein of left lower extremity ([facility]-HCC) Yes Compression of vein Isaiah was seen today for follow-up and blood clot(s). Diagnoses and all orders for this visit: Acute deep vein thrombosis (DVT) of femoral vein of left lower extremity ([facility]-H[facility]) - Vas IVC/iliac duplex complete; Future - Compression stockings Compression of vein - Vas IVC/iliac duplex complete; Future - Compression stockings 1. Acute deep vein thrombosis (DVT) of femoral vein of left lower extremity ([facility]-HCC) - Vas IVC/iliac duplex complete; Future - Compression stockings 2. Compression of vein - Vas IVC/iliac duplex complete; Future - Compression stockings 74 y.o. 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 DVT: Reported no acute findings on recent venous duplex. Will attempt to obtain records. Due to concern for isolated L>RLE edema w/ h/o DVT need to rule out proximal stenosis/occlusion. Iliac/IVC US ordered. Compression stockings ordered (20-30mmHg; knee high). Encouraged pt to wear daily. Continue w/ elevation as able - suspect pt spends majority of his time seated in wheelchair. Anticoag: eliquis Duration: indefinite Return to office after iliac/IVC US completed to discuss compliance w/ compression stockings, persistent symptoms and review testing results. Renee Cano DO Vascular Surgery documented in this encounter [facility] 12-03-2024 Telephone encounter Note Requested Prescriptions Signed Prescriptions Disp Refills traMADol (Ultram) 50 MG tablet 120 tablet 0 Sig: Take 1 tablet (50 mg) by mouth every 6 (six) hours Authorizing Provider: BIANCA CM [facility] 12-03-2024 Miscellaneous Notes Requested Prescriptions Signed Prescriptions Disp Refills traMADol (Ultram) 50 MG tablet 120 tablet 0 Sig: Take 1 tablet (50 mg) by mouth every 6 (six) hours Authorizing Provider: BIANCA CM documented in this encounter [facility] 11-18-2024 Note Cardiovascular Medic [facility] SUBJECTIVE Chief Complaint Patient presents with Coronary Artery Disease Edema Hypertension Isaiah Cooper is a 74 y.o. male here for follow-up. HPI PMHx: CAD, NSVT, hypertension, DVT/PE - needs lifelong AC, PAD He is nonverbal and wheelchair bound. He is able to answer yes/no questions. 11/18/2024 He was started on metolazone 2.5mg daily today at his facility due to worsening leg swelling. He is also currently taking lasix 40mg daily. He c/o SOB with exercise. He notes his increased leg swelling and worsening SOB started a few weeks ago. Denies CP, palpitations, dizziness/LH, syncope, orthopnea, PND. Patient Active Problem List Diagnosis Acute deep vein thrombosis (DVT) of femoral vein of left lower extremity (CMS/HCC) Acute deep vein thrombosis (DVT) of femoral vein of right lower extremity (CMS/HCC) Acute deep vein thrombosis (DVT) of tibial vein of left lower extremity (CMS/HCC) Coronary atherosclerosis Essential hypertension History of pulmonary embolism Malignant neoplasm of brainstem (CMS/HCC) Nonsustained ventricular tachycardia (CMS/HCC) PAD (peripheral artery disease) Ventricular premature beats Bipolar II disorder (CMS/HCC) Dysphagia as late effect of cerebrovascular accident (CVA) Edema Gastroesophageal reflux disease without esophagitis Myalgia Obsessive-compulsive disorder Osteoporosis Pseudobulbar affect Ulcerative colitis (CMS/HCC) Past Medical History: Diagnosis Date Arrhythmia Cancer (CMS/HCC) Coronary artery disease Hyperlipidemia Hypertension NSVT (nonsustained ventricular tachycardia) (CMS/HCC) Pulmonary embolism (CMS/HCC) Family History Problem Relation Name Age of Onset Other (ICD) Father Coronary artery disease Father Other (CABG) Father Stroke Brother Social History Tobacco Use Smoking status: Former Types: Cigarettes Smokeless tobacco: Never Substance Use Topics Alcohol use: Not Currently No Known Allergies ROS Cardiovascular: Positive for leg swelling (L > R). Respiratory: Positive for shortness of breath. Neurological: Positive for headaches and paresthesias. All other systems reviewed and are negative. OBJECTIVE Visit Vitals BP 113/71 (BP Location: Left arm, Patient Position: Sitting) Pulse 91 SpO2 91% Smoking Status Former Medications: Current Outpatient Medications: acetaminophen (Tylenol) 325 mg tablet, Take 650 mg by mouth every 6 (six) hours if needed., Disp: , Rfl: apixaban (Eliquis) 5 mg tablet, Take 5 mg by mouth in the morning and at bedtime., Disp: , Rfl: aspirin 81 mg chewable tablet, in the morning., Disp: , Rfl: atorvastatin (Lipitor) 40 mg tablet, Take 40 mg by mouth 1 (one) time each day., Disp: , Rfl: calcium carbonate-vitamin D3 500 mg-5 mcg (200 unit) tablet, Take 1 tablet by mouth in the morning., Disp: , Rfl: cholecalciferol, vitamin D3, 50 mcg (2,000 unit) capsule, Take 2,000 Units by mouth in the morning., Disp: , Rfl: cholestyramine light (Prevalite) 4 gram packet, Take 1 packet by mouth in the morning., Disp: , Rfl: dexAMETHasone (Decadron) 2 mg tablet, Take 2 mg by mouth in the morning., Disp: , Rfl: divalproex sprinkle (Depakote Sprinkle) [address] capsule, Take 125 mg by mouth once daily as directed., Disp: , Rfl: DOCOSAHEXAENOIC ACID ORAL, Take 1,000 mg by mouth twice a day., Disp: , Rfl: lisinopril 5 mg tablet, Take 5 mg by mouth in the morning., Disp: , Rfl: metOLazone (Zaroxolyn) 2.5 mg tablet, Take 2.5 mg by mouth in the morning., Disp: , Rfl: potassium chloride CR (Klor-Con M20) 20 mEq ER tablet, Take 20 mEq by mouth in the morning., Disp: , Rfl: risperiDONE (RisperDAL) 1 mg/mL oral solution, Take 0.5 mg by mouth at bedtime., Disp: , Rfl: sulfaSALAzine (Azulfidine) 500 mg tablet, sulfasalazine 500 mg tablet, Disp: , Rfl: dextromethorphan-quinidine (Nuedexta) 20-10 mg capsule, Nuedexta 20 mg-10 mg capsule, Disp: , Rfl: furosemide (Lasix) 40 mg tablet, Take 1 tablet (40 mg) by mouth two times daily., Disp: 60 tablet, Rfl: 5 Physical Exam Constitutional: Appearance: Normal appearance. He is normal weight. HENT: Head: Normocephalic and atraumatic. Right Ear: External ear normal. Left Ear: External ear normal. Eyes: Extraocular Movements: Extraocular movements intact. Pupils: Pupils are equal, round, and reactive to light. Neck: Vascular: No carotid bruit. Comments: Hard to assess JVD but may be elevated Cardiovascular: Rate and Rhythm: Normal rate and regular rhythm. Pulses: Normal pulses. Heart sounds: Normal heart sounds. Pulmonary: Effort: Pulmonary effort is normal. Breath sounds: Normal breath sounds. Abdominal: General: Bowel sounds are normal. Palpations: Abdomen is soft. Musculoskeletal: General: Normal range of motion. Cervical back: Neck supple. Right lower leg: Edema present. Left lower leg: Edema present. Comments: +2 RLE pitting (more content not included)... [facility] 11-18-2024 Note Patient here for 1 y ear follow up CAD, NSVT, hyperlipidemia, hypertension, and hx of DVT/PE (on Eliquis). detention staff noted he was started on metolazone 2.5mg daily for increased LE edema. Routine labs with lipid panel were drawn last month. Patient does admit to increased SOB. Denies chest pain, palpitations, lightheadedness/syncope, and bleeding on Eliquis. Review of Systems Cardiovascular: Positive for leg swelling (L > R). Respiratory: Positive for shortness of breath. Neurological: Positive for headaches and paresthesias. All other systems reviewed and are negative. [facility] 08-20-2024 Telephone encounter Note Requested Prescriptions Signed Prescriptions Disp Refills traMADol (Ultram) 50 MG tablet 60 tablet 5 Sig: Take 1 tablet (50 mg) by mouth in the morning and 1 tablet (50 mg) before bedtime. Authorizing Provider: BIANCA CM patient. [facility] 08-20-2024 Miscellaneous Notes Requested Prescriptions Signed Prescriptions Disp Refills traMADol (Ultram) 50 MG tablet 60 tablet 5 Sig: Take 1 tablet (50 mg) by mouth in the morning and 1 tablet (50 mg) before bedtime. Authorizing Provider: BIANCA CM [place] patient. documented in this encounter [facility] 11-26-2023 History of Presen t illness Narrative Images from the original note were not included. [facility] [address] [place] [id number] Subjective: Patient ID: Isaiah Cooper is a 73 y.o. male. Chief Complaint No chief complaint on file. History of Present Illness: This is a 73 year old male with history of bilateral lower extremity DVT and remote placement of IVC filter. He is on long-term anticoagulation with Eliquis for multiple DVT. He currently resides in a detention. He is somewhat nonverbal, is wheelchair-bound, and has some chronic weakness of the left leg. He has mild edema in the left leg and minimal on the right. No issues with anticoagulation. Patient Active Problem List Diagnosis Acute deep vein thrombosis (DVT) of tibial vein of left lower extremity ([facility]) Acute deep vein thrombosis (DVT) of femoral vein of left lower extremity ([facility]) Acute deep vein thrombosis (DVT) of femoral vein of right lower extremity ([facility]) PAD (peripheral artery disease) ([facility] Current Outpatient Medications: apixaban (ELIQUIS) 5 mg tablet, Take by mouth 2 (two) times a day., Disp: , Rfl: aspirin 81 mg, Take 1 tablet (81 mg total) by mouth in the morning., Disp: , Rfl: atorvastatin (LIPITOR) 40 mg tablet, Take 1 tablet (40 mg total) by mouth in the morning., Disp: , Rfl: calcium carbonate-vitamin D3 (OSCAL 500 + D) 500 mg(1,250mg) -200 units per tablet, Take 1 tablet by mouth in the morning., Disp: , Rfl: cholecalciferol, vitamin D3, 2,000 units capsule, Take 1 capsule (2,000 Units total) by mouth in the morning., Disp: , Rfl: cholestyramine-aspartame (PREVALITE) 4 g powder in packet, Take 1 packet by mouth in the morning., Disp: , Rfl: furosemide (LASIX) 40 mg tablet, Take 1 tablet (40 mg total) by mouth daily., Disp: , Rfl: loperamide (IMODIUM) 2 mg capsule, Take 1 capsule (2 mg total) by mouth every 8 (eight) hours as needed for diarrhea., Disp: , Rfl: omega 8-wdi-euz-fish oil 300-1,000 mg capsule, Take 1,000 mg by mouth 2 (two) times a day., Disp: , Rfl: risperiDONE (RisperDAL) 1 mg/mL oral solution, Take 1 mL (1 mg total) by mouth in the morning and 1 mL (1 mg total) before bedtime. MIX WITH DRINK ., Disp: , Rfl: sulfaSALAzine (AZULFIDINE) 500 mg tablet, Take 1 tablet (500 mg total) by mouth in the morning., Disp: , Rfl: valproic acid, as sodium salt, (DEPAKENE) 250 mg/5 mL (5 mL) solution, Take by mouth 2 (two) times a day. 5ML, Disp: , Rfl: acetaminophen (TYLENOL) 325 mg tablet, Take 2 tablets (650 mg total) by mouth every 6 (six) hours as needed for pain or fever (FEVER >101F)., Disp: , Rfl: dextromethorphan-quiNIDine (NUEDEXTA) 20-10 mg capsule, Take 1 capsule by mouth in the morning and 1 capsule before bedtime. (Patient not taking: Reported on 11/26/2023), Disp: , Rfl: lisinopriL (PRINIVIL,ZESTRIL) 5 mg tablet, Take 1 tablet (5 mg total) by mouth in the morning., Disp: , Rfl: The following portions of the patient's history were reviewed and updated as appropriate: allergies, current medications, past family history, past medical history, past social history, past surgical history and problem list. Review of Systems: Review of Systems Unable to perform ROS: Patient nonverbal Objective: Vitals BP 124/76 (BP Site: Right Arm, BP Postition: Sitting, BP CUFF SIZE: M (9-13 inches)) Pulse 68 SpO2 94% Physical Exam Physical Exam Vitals and nursing note reviewed. Constitutional: Appearance: He is well-developed. HENT: Head: Normocephalic and atraumatic. Nose: Nose normal. Mouth/Throat: Mouth: Mucous membranes are moist. Pharynx: Oropharynx is clear. Eyes: Conjunctiva/sclera: Conjunctivae normal. Cardiovascular: Rate and Rhythm: Normal rate and regular rhythm. Pulmonary: Effort: Pulmonary effort is normal. Abdominal: Palpations: Abdomen is soft. Musculoskeletal: General: Normal range of motion. Cervical back: Normal range of motion. Left lower leg: Edema present. Skin: General: Skin is warm and dry. Capillary Refill: Capillary refill takes less than 2 seconds. Neurological: Mental Status: He is alert and oriented to person, place, and time. Palpable PT pulses bilaterally Studies Reviewed None Lab Results Component Value Date DDIMER 7,826 (H) 05/26/2021 Lab Results Component Value Date GLU 107 (H) 05/26/2021 CALCIUM 8.9 05/26/2021 SODIUM 138 05/26/2021 K 4.5 05/26/2021 CO2 25 05/26/2021 BUN 35 (H) 05/26/2021 CREATININE 1.22 (H) 05/26/2021 Lab Results Component Value Date WBC 4.8 07/22/2021 HGB 14.1 07/22/2021 HCT 43.3 07/22/2021 MCV 87 07/22/2021 PLT 183 07/22/2021 Assesment: Diagnoses and all orders for this visit: Acute deep vein thrombosis (DVT) of tibial vein of left lower extremity (CMS-HCC) Acute deep vein thrombosis (DVT) of femoral vein of left lower extremity (CMS-HCC) Acute deep vein thrombosis (DVT) of femoral vein of right lower extremity (CMS-HCC) Plan: Plan Doing well on Eliquis, will continue lifelong anticoagulation. Patient noted to have mild edema of the left leg likely associated with chronic weakness of the leg. Elevate legs when possible. Will see him back in one year This note was created with the assistance of a speech recognition program. While intending to generate a timely document that accurately reflects the content of the visit, no guarantee can be provided that every grammatical or spelling mistake has been or will be identified or corrected. Thank you for your understanding. Anjana Luna MD documented in this encounter [facility] Evaluation note Diagnosis Chronic midline low back pain with bilateral sciatica- Primary documented in this encounter [facility]* Diagnosis Acute deep vein thrombosis (DVT) of tibial vein of left lower extremity (CMS-HCC)- Primary Acute deep vein thrombosis (DVT) of femoral vein of left lower extremity (CMS-HCC) Acute deep vein thrombosis (DVT) of femoral vein of right lower extremity (CMS-HCC) documented in this encounter [facility]* Diagnosis Chronic midline low back pain with bilateral sciatica- Primary documented in this encounter [facility]* Diagnosis Acute deep vein thrombosis (DVT) of femoral vein of left lower extremity (CMS-HCC)- Primary Compression of vein documented in this encounter [facility]* Diagnosis Chronic midline low back pain with bilateral sciatica- Primary documented in this encounter [facility] note* Diagnosis Acute deep vein thrombosis (DVT) of tibial vein of left lower extremity (CMS-HCC)- Primary Acute deep vein thrombosis (DVT) of femoral vein of left lower extremity (CMS-HCC) documented in this encounter [facility]* Diagnosis Chronic midline low back pain with bilateral sciatica- Primary documented in this encounter [facility] note* Diagnosis Chronic midline low back pain with bilateral sciatica- Primary documented in this encounter [facility] HealthcareInstructionsNot on filedocumented in this encounterPro[facility] SystemInstructionsNot on filedocumented in this encounterProMary [facility] Summary Purpose Family History No Family History Records FoundNo Family History Records FoundNo Family History Records FoundNo Family History Records FoundNo Family History Records FoundNo Family History Records Found Advance Directives Documents on File Type Date Recorded 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 Advance Directive 05/26/2021 10:51 AM [facility] Documents on File Type Date Recorded 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 Advance Directive 05/26/2021 10:51 AM [facility] Additional Source Comments (unrecognized sect ion and content) No Status Records FoundNo Status Records FoundNo Status Records FoundNo Status Records FoundNo Status Records FoundNo Status Records Found INFORMATION SOURCE (unrecogn ized section and content) DATE CREATED AUTHOR 02/27/2018 [facility] DATE CREATED AUTHOR AUTHOR'S ORGANIZ ATION 10/13/2020 [facility] DATE CREATED AUTHOR AUTHOR'S ORGANIZ ATION 09/21/2021 [facility] DATE CREATED AUTHOR AUTHOR'S ORGANIZ ATION 12/17/2024 [facility] DATE CREATED AUTHOR AUTHOR'S ORGANIZ ATION 01/20/2025 [facility] DATE CREATED AUTHOR AUTHOR'S ORGANIZ ATION 04/30/2025 [facility] Care Teams (unrecognized sec tion and content) Practice Clinician Relationship Specialty Start Date End Date Joseph Peterson MD [address] [place] [address] PCP - General Family Medicine 02/14/23 Practice Clinician Relationship Specialty Start Date End Date No Pcp, [place] [id number] PCP - General Family Medicine 04/30/17 Practice Clinician Relationship Specialty Start Date End Date Joseph Peterson MD [address] [facility] [address] [place] [address] PCP - General Family Medicine 02/14/23 Joseph Peterson MD [address] [place] [address] PCP - ACO Reach 10/10/24 Practice Clinician Relationship Specialty Start Date End Date No Pcp, [place] [id number] PCP - General Family Medicine 04/30/17 Practice Clinician Relationship Specialty Start Date End Date Joseph Peterson MD [address] [place] [address] PCP - General Family Medicine 02/14/23 Joseph Peterson MD [address] [place] [address] PCP - ACO Reach 10/10/24 Practice Clinician Relationship Specialty Start Date End Date Joseph Peterson MD [address] [facility] [address] [place] [address] PCP - General Family Medicine 12/31/24 Practice Clinician Relationship Specialty Start Date End Date Jospeh Peterson MD [address] [facility] [address] [place] [address] PCP - General Family Medicine 02/14/23 Joseph Peterson MD [address] [facility] [address] [place] [address] PCP - ACO Reach 10/10/24 Practice Clinician Relationship Specialty Start Date End Date Joseph Peterson MD [address] [facility] [address] [place] [address] PCP - General Family Medicine 02/14/23 Joseph Peterson MD [address] [facility] [address] [place] [address] PCP - ACO Reach 10/10/24 Reason for Visit (unrecogniz ed section and content) Reason Comments Follow-up Blood Clot(s) Hx of DVT Reason Comments Follow-up Blood Clot(s) Testing done FOR RECORDS PERTAINING TO PATIENTS WHO ARE OR HAVE BEEN ENROLLED IN A CHEMICAL DEPENDENCY/SUBSTANCEABUSE PROGRAM, SOME INFORMATION MAY BE OMITTED. This clinical summary was aggregated from multiple sources. Caution should be exercised in using it in the provision of clinical care. This summary normalizes information from multiple sources, and as a consequence, information in this document may materially change the coding, format and clinical context of patient data. In addition, data may be omitted in some cases. CLINICAL DECISIONS SHOULD BE BASED ON THE PRIMARY CLINICAL RECORDS. [employer] provides no warranty or guarantee of the accuracy or completeness of information in this document.
[2025-05-21 14:34] LABS: Hematocrit 41.6 % (42.0-54.0); Hemoglobin 12.9 g/dL (14.0-18.0); Immature Granulocytes Abs Auto 0.06 10^3/uL (0.00-0.03); Immature Granulocytes Pct Auto 0.5 % (0.0-0.5); Lymphocytes Absolute Auto 1.3 10^3/uL (1.2-3.8); Mean Corpuscular HGB Conc 31.0 g/dL (29.9-35.2); Mean Corpuscular Hemoglobin 27.1 pg (25.9-34.0); Mean Corpuscular Volume 87.4 fL (80.0-94.0); Platelet Count 229 10^3/uL (150-450); Red Blood Count 4.76 10^6/uL (4.70-6.10); White Blood Count 11.6 10^3/uL (4.0-11.0)
[2025-05-21 14:59] LABS: Alanine Aminotransferase 20 U/L (16-63); Albumin Globulin Ratio 0.9; Albumin Level 2.6 g/dL (3.4-5.0); Alkaline Phosphatase 66 U/L (46-116); Anion Gap 12.4; Aspartate Amino Transferase 20 U/L (15-37); Blood Urea Nitrogen 36.0 mg/dL (7.0-18.0); Calcium 8.6 mg/dL (8.5-10.1); Carbon Dioxide 34.2 mmol/L (21.0-32.0); Chloride 98 mmol/L (98-107); Estimated GFR (African America 36 (>=60 mL/min/1.73m^2); Estimated GFR (Non-African Ame 30 (>=60 mL/min/1.73m^2); Globulin 2.9 g/dL; Glucose 113 mg/dL (74-106); Potassium 3.6 mmol/L (3.5-5.1); Sodium 141 mmol/L (136-145); Total Protein 5.5 g/dL (6.4-8.2)
== END 2025-05-21 14:16 | disposition home or self-care (01) ==
LOC: LAB 14:15
PROVIDERS: PCP Nurse Practitioner Family; Visit Provider Nurse Practitioner Family
DX: R41.82 Altered mental status, unspecified (principal)
CPT/HCPCS: 36415; 80053; 85025